=== PATIENT | female | born 1970 | race Caucasian/White ===

== ENCOUNTER 2018-03-23 16:33 | Emergency (ER) | payer OTHER ==
[~2018-03-23] VITALS: Ht 170.2 cm; Wt 58.1 kg
[2018-03-23] MEDS ORDERED: CALCIUM 500 +1 EAC5 PO (18:30)
[2018-03-23] MEDS ORDERED: CIPRO500 MG PO (18:30)
[2018-03-23] MEDS ORDERED: BACTRIM DS TAB1 EACH PO (18:30)
[2018-03-23] MEDS ORDERED: ALDACTONE50 MG PO (18:30)
[2018-03-23 18:47] LABS: ABSOLUTE NEUTROPHILS 3.1 thou/uL (1.4-8.2); BASOPHILS 0.6 % (0.0-2.0); EOSINOPHILS 10.3 % (0.0-3.0); HEMATOCRIT 40.6 % (37.0-47.0); LYMPHOCYTES 24.4 % (24.0-44.0); MCH 33.6 pg (26.0-34.0); MCHC 34.5 g/dL (28.0-37.0); MCV 97.4 fL (80.0-100.0); MONOCYTES 10.4 % (1.0-8.0); PLATELET COUNT 132 thou/uL (150-400); POLYS 54.3 % (36.0-66.0); RBC 4.17 mil/uL (4.20-5.00); RDW 12.2 % (10.5-14.5); WBC 5.7 thou/uL (4.0-11.0)
[2018-03-23 18:55] LABS: CALCIUM 8.3 mg/dL (8.5-10.1); POTASSIUM 3.8 mmol/L (3.5-5.1)
[2018-03-23 21:10] VITALS: BP 108/60
== END 2018-03-23 22:51 | disposition home or self-care (01) ==
LOC: ER 16:33
PROVIDERS: Emergency Medicine
DX: T81.4XXA Infection following a procedure, initial encounter (principal); R11.0 Nausea; F17.210 Nicotine dependence, cigarettes, uncomplicated

== ENCOUNTER → 2018-03-25 | Outpatient (CLI) | payer OTHER ==
[~2018-03-25] MED LIST: ALDACTONE50 MG PO; BACTRIM DS TAB1 EACH PO; CALCIUM 500 +1 EAC5 PO; CIPRO500 MG PO
== END ==
LOC: HYPER 06:49
DX: T81.4XXD Infection following a procedure, subsequent encounter (principal); M20.12 Hallux valgus (acquired), left foot; L84 Corns and callosities; F17.200 Nicotine dependence, unspecified, uncomplicated; Y83.8 Other surgical procedures as the cause of abnormal reaction of the patient, or of later complication, without mention of misadventure at the time of the procedure

== ENCOUNTER → 2018-04-06 | Outpatient (CLI) | payer OTHER | LOC: HYPER 07:30 | DX: T81.4XXD Infection following a procedure, subsequent encounter (principal); F17.210 Nicotine dependence, cigarettes, uncomplicated; Z89.511 Acquired absence of right leg below knee; Y83.8 Other surgical procedures as the cause of abnormal reaction of the patient, or of later complication, without mention of misadventure at the time of the procedure ==